=== PATIENT | male | born 1935 | race Caucasian/White ===

== ENCOUNTER 2019-04-11 16:33 | Observation (INO) | payer MEDICARE, MEDICAID ==
[2019-04-11 17:56] LABS: #Basophils 0.1 thou/uL (0.0-0.2); #Eosinphils 0.8 thou/uL (0.0-0.7); #Lymphocytes 1.9 thou/uL (1.20-3.40); #Monocytes 1.6 thou/uL (0.11-0.59); #Neutrophils 7.8 thou/uL (1.40-6.50); %Basophils 0.6 % (0.0-1.0); %Eosinophils 6.4 % (0.0-10.0); %Lymphocytes 15.8 % (21.0-51.0); %Monocytes 12.9 % (0.0-10.0); %Neutrophils 64.3 % (42.0-75.0); Mean Corpuscular HGB CONC 32.9 g/dL (32.0-36.0); Mean Corpuscular Hemoglobin 29.9 pg (27.0-31.0); Mean Corpuscular Volume 90.9 fL (78.0-98.0); Mean Platelet Volume 7.1 fL (7.4-10.4); Platelet Count 207 thou/uL (130-400); Red Blood Cell (RBC) Count 5.02 mill/uL (4.70-6.10); White Blood Cell (WBC) Count 12.2 thou/uL (4.8-10.8)
--- NOTE | 2019-04-11 18:06 | CT ---
EXAM: Brain CT scan Without contrast: HISTORY: Difficulty swallowing. Facial droop COMPARISON: 03/03/2011 FINDINGS: Atrophy and chronic white matter ischemic change. No focal mass or midline shift. No intra or extra-axial hemorrhage. The visualized sinuses and mastoids are clear of acute process. IMPRESSION: No mass or bleed or other significant acute intracranial process. Stable study.
--- NOTE | 2019-04-11 18:08 | RAD ---
Exam: Chest one view: HISTORY: Hypotension FINDINGS: Healed rib fractures bilaterally. Healed right clavicle fracture. Pleural and parenchymal opacity samanta nges noted bilaterally which are worsened when compared to 07/01/2014 study. Less overall inspiration. No confluent pneumonia. IMPRESSION: Worsening bilateral pleural thickening and pleural and parenchymal opacity changes bilaterally from p rior study. No confluent pneumonia. Mild vascular congestion. No cardiomegaly.
[2019-04-11 18:18] LABS: ALT (SGPT) 14 U/L (8-55); AST (SGOT) 23 U/L (5-34); Albumin 3.5 g/dL (3.4-4.8); Alkaline Phosphatase 69 U/L (40-150); Anion Gap 12 mmol/L (10-20); BUN (Urea Nitrogen) 13 mg/dL (8.4-25.7); Bilirubin, Total 0.7 mg/dL (0.2-1.2); Calc. Creatinine Clearance 0 mL/min (70-130); Calcium 9.3 mg/dL (7.8-10.44); Carbon Dioxide 26 mmol/L (23-31); Chloride 103 mmol/L (98-107); Estimated GFR-MDRD 58; Glucose 86 mg/dL (83-110); Potassium 4.3 mmol/L (3.5-5.1); Protein, Total 7.5 g/dL (5.8-8.1); Sodium 137 mmol/L (136-145)
[2019-04-11 19:27] LABS: Bilirubin Negative (Negative); Blood, Urine Negative (Negative); Clarity CLEAR (Clear); Glucose, Urine (Dipstick) Negative (Negative); Leukocyte Moderate (Negative); Nitrite Negative (Negative); Protein, Urine (Dipstick) Negative (Neg-Trace)
[2019-04-11 19:30] LABS: Bacteria/HPF None Seen HPF (None Seen); Hyaline Casts/LPF 0-3 HYALINE CAST LPF (0-3 Hyaline); Pathc Cast-AUWi Flag 0.54 (0-2.49); Squamous Epithelial 0-3 HPF (0-3)
[2019-04-11] MEDS ORDERED: Ondansetron ODT 4 MG TAB SL PRN (23:27)
[2019-04-11] MEDS ORDERED: Ondansetron PF 4 MG/2 ML Vial IVP PRN (23:27)
[2019-04-11] MEDS ORDERED: Lactated Ringer's 1,000 ML IV SCH (23:30)
[2019-04-12] MEDS ORDERED: Aspirin 300 MG Suppository PR SCH (00:45)
[2019-04-12 02:30] VITALS: BMI 22.1
[2019-04-12] MEDS ORDERED: Prevnar 13-Val Conj/PF 0.5 ML SYRINGE IM ONE (09:00)
[2019-04-12] MEDS: Sodium Chloride 0.9% 1,000 ML IV SCH ×2 (09:45→21:54)
[2019-04-12] MEDS: Enoxaparin Sodium 40 MG/0.4 ML SYRINGE SC SCH (15:48)
[2019-04-13 06:11] LABS: #Basophils 0.1 thou/uL (0.0-0.2); #Eosinphils 0.8 thou/uL (0.0-0.7); #Lymphocytes 1.5 thou/uL (1.20-3.40); #Monocytes 1.1 thou/uL (0.11-0.59); #Neutrophils 5.4 thou/uL (1.40-6.50); %Basophils 0.8 % (0.0-1.0); %Eosinophils 8.7 % (0.0-10.0); %Lymphocytes 16.6 % (21.0-51.0); %Monocytes 12.6 % (0.0-10.0); %Neutrophils 61.3 % (42.0-75.0); Hemoglobin 14.1 g/dL (14.0-18.0); Mean Corpuscular HGB CONC 32.8 g/dL (32.0-36.0); Mean Corpuscular Hemoglobin 29.7 pg (27.0-31.0); Mean Corpuscular Volume 90.5 fL (78.0-98.0); Mean Platelet Volume 6.8 fL (7.4-10.4); Platelet Count 201 thou/uL (130-400); RBC Distribution Width 12.8 % (11.5-14.5); Red Blood Cell (RBC) Count 4.73 mill/uL (4.70-6.10); White Blood Cell (WBC) Count 8.8 thou/uL (4.8-10.8)
[2019-04-13 06:32] LABS: ALT (SGPT) 10 U/L (8-55); AST (SGOT) 21 U/L (5-34); Albumin 2.9 g/dL (3.4-4.8); Alkaline Phosphatase 53 U/L (40-150); Anion Gap 14 mmol/L (10-20); BUN (Urea Nitrogen) 13 mg/dL (8.4-25.7); Bilirubin, Total 0.7 mg/dL (0.2-1.2); Calc. Creatinine Clearance 50 mL/min (70-130); Calcium 8.4 mg/dL (7.8-10.44); Carbon Dioxide 20 mmol/L (23-31); Chloride 109 mmol/L (98-107); Estimated GFR-MDRD 73; Globulin 3.4 g/dL (2.4-3.5); Glucose 60 mg/dL (83-110); Protein, Total 6.3 g/dL (5.8-8.1); Sodium 139 mmol/L (136-145)
[2019-04-13] MEDS: Enoxaparin Sodium 40 MG/0.4 ML SYRINGE SC SCH (08:42)
[2019-04-13] MEDS: Sodium Chloride 0.9% 1,000 ML IV SCH (11:22)
--- NOTE | 2019-04-13 11:32 | HP ---
CHIEF COMPLAINT: Per intermediate nursing, low blood pressure, decreased level of consciousness, and cough. HISTORY OF PRESENT ILLNESS: The patient is an 83-year-old intermediate resident from , who was sent to the emergency room for further evaluation after he was found to have a blood pressure running in 90s and having decreased level of consciousness. Apparently, the patient has a history of dementia. In the emergency room, his vitals were within normal limits. His white count was slightly elevated at 12. He had some leukocyte esterases elevation in his urine with some WBCs. Decision was made about further observation and further diagnostic workup and admission to Observation Unit. A chest x-ray and CT of the brain done in the emergency room, which did not show any acute abnormalities. Also, it was found that he was refusing p.o. fluids yesterday at the intermediate and his urine output was low. PAST MEDICAL HISTORY: Positive for, 1. Dementia without behavioral disturbance. 2. History of alcohol abuse. 3. Restlessness and agitation. 4. Allergic rhinitis. 5. Constipation. 6. Bipolar disorder. 7. Anxiety disorder. 8. Osteoarthritis. PAST SURGICAL HISTORY: To be investigated. ALLERGIES: NONE. CODE STATUS: DNR. Surrogate decision maker, the patient's daughter. SOCIAL HISTORY: He lives at the intermediate. He has a history of alcohol abuse in the past. FAMILY HISTORY: Unobtainable at this point since the patient is not able to answer my questions properly. MEDICATIONS: 1. Mirtazapine. 2. Klonopin. REVIEW OF SYSTEMS: Unobtainable secondary to the patient's mental condition. PHYSICAL EXAMINATION: VITAL SIGNS: Blood pressure is 110/78, pulse is 64, temperature is 97.5, respirations 20, and O2 saturation is 92% on room air. GENERAL: He is trying to wake up. He tries to follow my commands. CHEST: He has some dry cough during my visit. HEENT: His head is atraumatic and normocephalic. His pupils are midsize responding to light properly. Oral mucosa is somewhat dry. NECK: Supple. LUNGS: Clear. HEART: S1, S2 normal. No S3. No S4. ABDOMEN: Soft and nontender. Bowel sounds are present. No organomegaly. EXTREMITIES: No clubbing, cyanosis, or edema. NEUROLOGICAL EXAMINATION: He tries to follow my commands. He moves his all 4 extremities. Babinski sign is negative bilaterally. Strength in the upper and lower extremities, difficult to assess. SKIN: No rash or erythema. LABORATORY DATA: Showed white count of 12.2, hemoglobin 15.0, hematocrit 45.6, platelet count is 207,000, neutrophils 64.3. Chemistry within normal limits. Urinalysis showed moderate amount of leukocyte esterases, 7 to 10 WBCs, but no bacteria. Chest x-ray personally reviewed by me showed some chronic bilateral infiltrates in the lower parts and brain CT showed just atrophy and chronic changes. No acute stroke. IMPRESSION: 1. Hypotension per nursing staff at the intermediate, not confirmed with our findings so far. Apparently, he was not taking his fluids properly. This could be secondary. 2. Elevated white count and elevated leukocyte esterases in his urine, suspicious for possible urinary tract infection. We will do the urine culture and await with antibiotic treatment for now since he does not have any fever or any other symptoms. 3. Low urine output per intermediate. His chemistry did not show any kidney abnormalities at this point. 4. History of dementia and decreased level of consciousness according to the intermediate. We will observe him and evaluate his condition later today after he wakes up. Also, will have Speech therapist to evaluate his swallowing. PLAN: Admit him to observation. Condition is fair. DNR status. Continue IV fluids, normal saline 75 mL/h. Urine culture. Oral swab for flu A and B. As I mentioned above, Speech therapist to evaluate his swallowing before we continue his mechanical soft regular diet. The patient had 300 mg of aspirin before he left the facility. We will start, for DVT prophylaxis, SCDs and heparin subcutaneously once a day. Job ID: [id number]
[2019-04-13 15:58] VITALS: BP 105/66; TEMP 97.8
--- NOTE | 2019-04-14 09:34 | DIS ---
DATE OF ADMISSION: 04/11/2019 DATE OF DISCHARGE: 04/13/2019 FINAL DIAGNOSES: 1. Hypotension secondary to dehydration. 2. Dehydration. 3. Dementia. 4. Bipolar disorder. 5. Anxiety disorder. 6. Osteoarthritis. 7. Constipation. 8. History of alcohol abuse. HOSPITAL COURSE: The patient is an 83-year-old male, jail resident, who was sent to the emergency room for further evaluation after he was found to have decreased level of consciousness, not taking fluids, not eating properly, not having good urine output. Also, his blood pressure at the jail was noticed to be in the 90s. While in the emergency room, his white count was elevated to 12. His urinalysis was suspicious for some infection. The CT of the brain was done and did not show any acute abnormalities. The chest x-ray was done and it showed chronic parenchymal opacities. No pneumonia with some mild vascular congestion. The patient showed normal chemistry, but clinically he looked he was probably dehydrated, so he was placed on IV fluids normal saline 75 mL per hour and rehydrated. His drowsiness improved significantly to the point that he was able to talk to us. He was seen by speech therapist, who recommended continuation of current diet. He was on with pureed regular diet and some thin liquids. The case was discussed with the patient's daughter, who agreed with the management and plan. The blood pressure improved with IV fluids. The last blood pressure is 125/84. His temperature is 97.2 and microbiology urine culture showed 25,000 to 50,000 of mixed skin and enteric kallie, which was most likely nondiagnostic specimen, but his white count was down the next day with IV fluids. His influenza A/B tests on the throat swab came back negative. Clinically, he stopped coughing, most likely this was related to his dehydration. [facility] is [facility] jail. We are going to have palliative care involved in his care at the jail. His medications at the time of discharge, clonazepam dose was decreased to 0.5 mg twice a day. He will continue mirtazapine 7.5 mg once a day and docusate sodium 100 mg twice a day. He will follow up with his primary care physician in 1 week or as needed. His activities as tolerated and diet as mentioned above. Regular with thin liquids. The patient was seen and examined before he is discharged home, and the discharge time is less than 30 minutes. Job ID: [id number]
== END 2019-04-13 16:25 ==
LOC: ERS 16:33 → ERHOLD 19:59 → 2SE 23:01
PROVIDERS: ADMIT Family Medicine; ATTEND Family Medicine
DX: E86.0 Dehydration (principal); I95.9 Hypotension, unspecified; F03.90 Unspecified dementia, unspecified severity, without behavioral disturbance, psychotic disturbance, mood disturbance, and anxiety; F31.9 Bipolar disorder, unspecified; F41.9 Anxiety disorder, unspecified; M19.90 Unspecified osteoarthritis, unspecified site; K59.00 Constipation, unspecified; R39.12 Poor urinary stream; D72.829 Elevated white blood cell count, unspecified; I10 Essential (primary) hypertension; F10.10 Alcohol abuse, uncomplicated; Z79.899 Other long term (current) drug therapy
CPT/HCPCS: 70450; 71045; 80053 ×2; 84484; 85025 ×2; 87086; 87804 ×2; 90670; 93005; 96360; 96361 ×2; 96372; 99285; G0009; G0378 ×2; 36415; 81003; 81015; 90471; J1650